=== PATIENT | male | born 1960 | race Caucasian/White ===

== ENCOUNTER → 2025-07-03 15:41 | Outpatient (CLI) | payer OTHER, SELFPAY ==
--- NOTE | 2025-07-03 15:47 | DI.RAD.S_ITS ---
PROCEDURE: XR HAND RT MIN 3V
== END ==
PROVIDERS: Referring Provider Nurse Practitioner; Visit Provider Nurse Practitioner
DX: G56.00 Carpal tunnel syndrome, unspecified upper limb (principal); M21.941 Unspecified acquired deformity of hand, right hand
CPT/HCPCS: 73130